=== PATIENT | female | born 1950 | race Asian ===

== ENCOUNTER 2017-06-26 05:41 | Inpatient (IN) | payer MEDICAID ==
[2017-06-26] VITALS (42 sets, daily range): BP systolic 64–163; BP diastolic 27–90
[~2017-06-26] VITALS: Ht 154.9 cm; Wt 39.9 kg
[2017-06-26] MEDS ORDERED: SODIUM CHLORIDE 0.9% 250 ML IV ONE (06:45)
[2017-06-26 07:13] LABS: HEMATOCRIT. 37.3 % (36.0-48.0); HEMOGLOBIN. 12.7 g/dL (12.0-16.0); MEAN CORPUSCULAR HEMOGLOBIN 34.4 pg (28.0-32.0); MEAN CORPUSCULAR VOLUME 101.4 fL (81.0-99.0); MEAN PLATELET VOLUME 7.4 fl (7.4-10.4); PLATELET 234 x1000/uL (130-400); RED BLOOD CELL COUNT 3.68 mill/uL (4.2-5.4); RED CELL DISTRIBUTION WIDTH 17.5 % (11.6-14.6)
[2017-06-26 07:27] LABS: CARBON DIOXIDE 30 mEq/L (21-32); CHLORIDE 84 mEq/L (98-107)
[2017-06-26] MEDS ORDERED: CALCIUM CHLORIDE 1,000 MG in DEXT 5% WATER 90 ML IV ONE (07:45)
[2017-06-26] MEDS ORDERED: SODIUM POLYSTYRENE SULFONATE 15 G/60 ML BOT PO ONE (07:45)
[2017-06-26] MEDS ORDERED: DEXTROSE 50% WATER 50ML SYRINGE IV ONE ×3 (07:45→11:00)
[2017-06-26] MEDS ORDERED: INSULIN REGULAR (HUMULIN R) 300UNITS/3ML SUBCUT ONE (07:45)
[2017-06-26] MEDS ORDERED: ALBUTEROL (0.5%) 2.5MG/0.5ML NEB HHN ONE (08:30)
[2017-06-26] MEDS ORDERED: ALBUTEROL (0.083%) 2.5MG/3ML NEB ONE (08:53)
[2017-06-26 09:30] LABS: PLATELET ESTIMATE NORMAL
[2017-06-26] MEDS ORDERED: INSULIN REGULAR (HUMULIN R) 300UNITS/3ML IV ONE (11:00)
[2017-06-26] MEDS ORDERED: SODIUM CHLORIDE 0.9% 500 ML IV ONE (11:00)
[2017-06-26] MEDS ORDERED: ONDANSETRON HCL 4MG/2ML VIAL IV PRN (12:45)
[2017-06-26] MEDS ORDERED: DEXTROSE 50% WATER 50ML SYRINGE IV PRN (12:45)
[2017-06-26] MEDS ORDERED: IPRATROPIUM/ALBUTEROL 0.5-3(2.5)MG/3ML NEB INH PRN (12:45)
[2017-06-26] MEDS ORDERED: CLONIDINE 0.1MG TABLET PO PRN (12:45)
[2017-06-26] MEDS ORDERED: ACETAMINOPHEN 325MG TABLET PO PRN (12:45)
[2017-06-26] MEDS ORDERED: NOREPINEPHRINE 4 MG in DEXT 5% WATER 246 ML IV PRN ×2 (13:00→13:15)
[2017-06-26] MEDS: BLOOD SUGAR DIAGNOSTIC STRIP TEST SCH ×2 (16:30→20:44)
[2017-06-26] MEDS: INSULIN LISPRO 100 UNITS/ML SUBCUT SCH ×2 (17:00→21:00)
[2017-06-26] MEDS ORDERED: DILTIAZEM HCL 5MG/ML 5ML VIAL IV NR ×2 (17:56→18:00)
[2017-06-26] MEDS ORDERED: DILTIAZEM HCL 125 MG in DEXT 5% WATER 100 ML IV PRN (18:00)
[2017-06-26] MEDS ORDERED: PHENYLEPHRINE 40 MG in DEXT 5% WATER 246 ML IV PRN (18:15)
[2017-06-26] MEDS: ESMOLOL 2500MG PREMIX 250 ML IV SCH (19:49)
[2017-06-26] MEDS: DIPHENHYDRAMINE 50MG/ML VIAL IV PRN (20:00)
[2017-06-26] MEDS: HYDROCODONE/ACETAMINOPHEN 5/325MG TABLET PO PRN (20:01)
[2017-06-26] MEDS ORDERED: NOREPINEPHRINE 4 MG in SODIUM CHLORIDE 0.9% 246 ML IV PRN (20:29)
[2017-06-26] MEDS: PHENYLEPHRINE 40 MG in SODIUM CHLORIDE 0.9% 246 ML IV PRN (21:33)
[2017-06-26] MEDS ORDERED: HYDROCORTISONE SOD SUCCINATE 100 MG/2 ML VIAL IV SCH (22:00)
[2017-06-26] MEDS ORDERED: INSULIN DETEMIR UD 100 UNITS/ML SYR SUBCUT SCH (22:00)
[2017-06-26] MEDS: MORPHINE SULFATE 2 MG/ML CPJ (NOT FOR IM USE) IV PRN (22:23)
[2017-06-26] MEDS: PIPERACILLIN/TAZ 2.25G PREMIX 50 ML IV SCH (22:25)
[2017-06-26] MEDS: POLYVINYL ALCOHOL OPHTH DROPS 15ML BOTHEYE PRN (22:27)
[2017-06-27] VITALS (77 sets, daily range): BP systolic 50–157; BP diastolic 30–100
[2017-06-27 00:18] LABS: TROPONIN I 0.11 ng/mL (0.00-0.04)
[2017-06-27] MEDS: DIPHENHYDRAMINE 50MG/ML VIAL IV PRN ×2 (02:24→22:44)
[2017-06-27 05:38] LABS: HEMATOCRIT. 31.3 % (36.0-48.0); HEMOGLOBIN. 10.5 g/dL (12.0-16.0); MEAN CORPUSCULAR HEMOGLOBIN 34.6 pg (28.0-32.0); MEAN CORPUSCULAR VOLUME 103.5 fL (81.0-99.0); RED BLOOD CELL COUNT 3.02 mill/uL (4.2-5.4); RED CELL DISTRIBUTION WIDTH 17.5 % (11.6-14.6)
[2017-06-27 05:39] LABS: MEAN PLATELET VOLUME 7.4 fl (7.4-10.4); PLATELET 179 x1000/uL (130-400)
[2017-06-27] MEDS: ESMOLOL 2500MG PREMIX 250 ML IV SCH (05:51)
[2017-06-27] MEDS: PIPERACILLIN/TAZ 2.25G PREMIX 50 ML IV SCH ×3 (05:53→21:33)
[2017-06-27] MEDS: PHENYLEPHRINE 40 MG in SODIUM CHLORIDE 0.9% 246 ML IV PRN (06:05)
[2017-06-27 06:22] LABS: CARBON DIOXIDE 26 mEq/L (21-32); CHLORIDE 103 mEq/L (98-107); HDL CHOLESTEROL 56 mg/dL (40-59); LDL CHOLESTEROL 36 mg/dL (5-100); TROPONIN I 0.17 ng/mL (0.00-0.04)
[2017-06-27] MEDS: BLOOD SUGAR DIAGNOSTIC STRIP TEST SCH ×4 (06:30→20:06)
[2017-06-27] MEDS: INSULIN LISPRO 100 UNITS/ML SUBCUT SCH ×4 (07:00→20:06)
[2017-06-27 07:55] LABS: PHOSPHORUS 8.1 mg/dL (2.5-4.9)
[2017-06-27] MEDS: PANTOPRAZOLE SODIUM 40 MG/VIAL IV SCH (10:10)
[2017-06-27 11:36] LABS: PLATELET ESTIMATE NORMAL
[2017-06-27] MEDS: MUPIROCIN 2% CREAM 15GM TOP SCH ×2 (16:00→21:33)
[2017-06-27] MEDS: GUAIFENESIN/CODEINE 100-10MG/5ML UDC PO PRN (20:13)
[2017-06-28] VITALS (33 sets, daily range): BP systolic 84–149; BP diastolic 39–95
[2017-06-28] MEDS: MORPHINE SULFATE 2 MG/ML CPJ (NOT FOR IM USE) IV PRN ×2 (03:23→08:24)
[2017-06-28] MEDS: PIPERACILLIN/TAZ 2.25G PREMIX 50 ML IV SCH ×3 (05:28→22:21)
[2017-06-28] MEDS: MUPIROCIN 2% CREAM 15GM TOP SCH ×3 (05:28→22:21)
[2017-06-28 05:41] LABS: BASOPHILS % 0.5 % (0.0-2.0); EOSINOPHILS % 1.4 % (0.0-5.0); HEMATOCRIT. 28.7 % (36.0-48.0); HEMOGLOBIN. 9.6 g/dL (12.0-16.0); MEAN CORPUSCULAR HEMOGLOBIN 34.4 pg (28.0-32.0); MEAN CORPUSCULAR VOLUME 103.2 fL (81.0-99.0); MEAN PLATELET VOLUME 7.7 fl (7.4-10.4); MONOCYTES % 10.4 % (2.0-8.0); NEUTROPHILS % 75.7 % (40.0-76.0); PLATELET 126 x1000/uL (130-400); RED BLOOD CELL COUNT 2.78 mill/uL (4.2-5.4)
[2017-06-28] MEDS: BLOOD SUGAR DIAGNOSTIC STRIP TEST SCH ×6 (05:49→20:47)
[2017-06-28] MEDS: INSULIN LISPRO 100 UNITS/ML SUBCUT SCH ×4 (05:49→20:47)
[2017-06-28] MEDS: PANTOPRAZOLE SODIUM 40 MG/VIAL IV SCH (08:23)
[2017-06-28 11:20] LABS: TROPONIN I 0.1 ng/mL (0.00-0.04)
[2017-06-28 11:23] LABS: PHOSPHORUS 8.1 mg/dL (2.5-4.9)
[2017-06-28] MEDS ORDERED: MAGNESIUM 2 G PREMIX 50 ML IV NR (13:30)
[2017-06-28] MEDS: DIPHENHYDRAMINE 50MG/ML VIAL IV PRN ×2 (14:11→22:21)
[2017-06-28] MEDS: CALCIUM ACETATE 667MG CAPSULE PO SCH (17:29)
[2017-06-29] VITALS (12 sets, daily range): BP systolic 95–147; BP diastolic 45–70
[2017-06-29] MEDS: HYDROCODONE/ACETAMINOPHEN 5/325MG TABLET PO PRN (01:17)
[2017-06-29] MEDS: MUPIROCIN 2% CREAM 15GM TOP SCH ×3 (06:00→21:37)
[2017-06-29] MEDS: PIPERACILLIN/TAZ 2.25G PREMIX 50 ML IV SCH ×2 (06:00→21:37)
[2017-06-29 07:13] LABS: BASOPHILS % 0.5 % (0.0-2.0); EOSINOPHILS % 2.9 % (0.0-5.0); HEMOGLOBIN. 10.4 g/dL (12.0-16.0); LYMPHOCYTES % 14.9 % (20.0-50.0); MEAN CORPUSCULAR HEMOGLOBIN 34.4 pg (28.0-32.0); MEAN CORPUSCULAR VOLUME 103.1 fL (81.0-99.0); MEAN PLATELET VOLUME 7.6 fl (7.4-10.4); MONOCYTES % 10.4 % (2.0-8.0); NEUTROPHILS % 71.3 % (40.0-76.0); PLATELET 145 x1000/uL (130-400); RED BLOOD CELL COUNT 3.01 mill/uL (4.2-5.4); RED CELL DISTRIBUTION WIDTH 17.1 % (11.6-14.6)
[2017-06-29 08:08] LABS: PHOSPHORUS 7.9 mg/dL (2.5-4.9)
[2017-06-29] MEDS: INSULIN LISPRO 100 UNITS/ML SUBCUT SCH ×4 (08:10→20:44)
[2017-06-29] MEDS: CALCIUM ACETATE 667MG CAPSULE PO SCH ×3 (08:28→18:00)
[2017-06-29] MEDS: PANTOPRAZOLE SODIUM 40 MG/VIAL IV SCH (08:28)
[2017-06-29] MEDS: BLOOD SUGAR DIAGNOSTIC STRIP TEST SCH ×4 (08:29→20:43)
[2017-06-29] MEDS ORDERED: AMIODARONE HCL 150 MG in DEXT 5% WATER 100 ML IV NR (15:45)
[2017-06-29] MEDS ORDERED: AMIODARONE HCL 900 MG in DEXT 5% WATER 482 ML IV SCH (16:15)
[2017-06-30] VITALS (12 sets, daily range): BP systolic 100–120; BP diastolic 49–70
[2017-06-30] MEDS: PIPERACILLIN/TAZ 2.25G PREMIX 50 ML IV SCH ×3 (05:57→21:56)
[2017-06-30] MEDS: MUPIROCIN 2% CREAM 15GM TOP SCH ×3 (05:57→21:57)
[2017-06-30] MEDS: BLOOD SUGAR DIAGNOSTIC STRIP TEST SCH ×4 (07:06→21:46)
[2017-06-30] MEDS: INSULIN LISPRO 100 UNITS/ML SUBCUT SCH ×4 (07:59→21:00)
[2017-06-30] MEDS: CALCIUM ACETATE 667MG CAPSULE PO SCH ×3 (08:09→18:19)
[2017-06-30] MEDS: PANTOPRAZOLE SODIUM 40 MG/VIAL IV SCH (08:09)
[2017-06-30 09:31] LABS: HEMOGLOBIN 8.4 g/dL (12.0-16.0); MEAN CORPUSCULAR HEMOGLOBIN 34.8 pg (28.0-32.0); MEAN CORPUSCULAR VOLUME 103.2 fL (81.0-99.0); PLATELET 120 x1000/uL (130-400); RED BLOOD CELL COUNT 2.42 mill/uL (4.2-5.4); RED CELL DISTRIBUTION WIDTH 16.8 % (11.6-14.6)
[2017-06-30] MEDS: AMIODARONE HCL 200 MG TABLET PO SCH ×2 (12:26→21:00)
[2017-07-01] VITALS (10 sets, daily range): BP systolic 90–137; BP diastolic 49–99
[2017-07-01] MEDS: PIPERACILLIN/TAZ 2.25G PREMIX 50 ML IV SCH ×3 (05:34→22:22)
[2017-07-01] MEDS: MUPIROCIN 2% CREAM 15GM TOP SCH ×3 (05:34→21:54)
[2017-07-01] MEDS: BLOOD SUGAR DIAGNOSTIC STRIP TEST SCH ×5 (07:39→21:00)
[2017-07-01] MEDS: INSULIN LISPRO 100 UNITS/ML SUBCUT SCH ×4 (08:00→21:00)
[2017-07-01] MEDS: CALCIUM ACETATE 667MG CAPSULE PO SCH ×3 (08:00→18:07)
[2017-07-01] MEDS: AMIODARONE HCL 200 MG TABLET PO SCH ×2 (08:23→21:00)
[2017-07-01] MEDS: PANTOPRAZOLE SODIUM 40 MG/VIAL IV SCH (08:23)
[2017-07-01 09:01] LABS: BASOPHILS % 0.7 % (0.0-2.0); EOSINOPHILS % 1.6 % (0.0-5.0); HEMOGLOBIN. 8.9 g/dL (12.0-16.0); LYMPHOCYTES % 10.2 % (20.0-50.0); MEAN CORPUSCULAR HEMOGLOBIN 33.6 pg (28.0-32.0); MEAN PLATELET VOLUME 8.2 fl (7.4-10.4); NEUTROPHILS % 74.5 % (40.0-76.0); PLATELET 148 x1000/uL (130-400); RED BLOOD CELL COUNT 2.65 mill/uL (4.2-5.4); RED CELL DISTRIBUTION WIDTH 16.7 % (11.6-14.6)
[2017-07-01] MEDS: POLYVINYL ALCOHOL OPHTH DROPS 15ML BOTHEYE PRN ×2 (12:06→22:22)
[2017-07-01] MEDS: IPRATROPIUM BROMIDE (0.02%) 0.5MG/2.5ML NEB HHN SCH ×3 (12:14→21:16)
[2017-07-01] MEDS: GUAIFENESIN/CODEINE 100-10MG/5ML UDC PO PRN ×2 (12:28→22:22)
[2017-07-01] MEDS: SILVER SULFADIAZINE 1% CREAM 50GM TOP SCH (18:07)
[2017-07-01] MEDS ORDERED: EPOETIN ALFA 10000UNITS/ML VIAL SUBCUT SCH (21:00)
[2017-07-02] MEDS: DIPHENHYDRAMINE 50MG/ML VIAL IV PRN (01:11)
[2017-07-02] MEDS: GUAIFENESIN/CODEINE 100-10MG/5ML UDC PO PRN ×2 (01:14→10:25)
[2017-07-02 04:12] VITALS: BP 91/58
[2017-07-02 04:43] VITALS: BP 34/19
[2017-07-02] MEDS: PIPERACILLIN/TAZ 2.25G PREMIX 50 ML IV SCH ×2 (05:30→13:34)
[2017-07-02] MEDS: MUPIROCIN 2% CREAM 15GM TOP SCH ×2 (05:30→13:35)
[2017-07-02 06:40] LABS: HEMATOCRIT. 23.3 % (36.0-48.0); HEMOGLOBIN. 7.8 g/dL (12.0-16.0); MEAN CORPUSCULAR HEMOGLOBIN 33.9 pg (28.0-32.0); MEAN CORPUSCULAR VOLUME 101.4 fL (81.0-99.0); MEAN PLATELET VOLUME 7.9 fl (7.4-10.4); PLATELET 133 x1000/uL (130-400); RED BLOOD CELL COUNT 2.29 mill/uL (4.2-5.4); RED CELL DISTRIBUTION WIDTH 16.5 % (11.6-14.6)
[2017-07-02] MEDS: BLOOD SUGAR DIAGNOSTIC STRIP TEST SCH ×3 (07:30→17:30)
[2017-07-02] MEDS: INSULIN LISPRO 100 UNITS/ML SUBCUT SCH ×3 (08:00→17:52)
[2017-07-02] MEDS: IPRATROPIUM BROMIDE (0.02%) 0.5MG/2.5ML NEB HHN SCH ×4 (08:17→20:06)
[2017-07-02 10:20] LABS: TOTAL IRON BINDING CAPACITY 109 ug/dL (250-450)
[2017-07-02] MEDS: CALCIUM ACETATE 667MG CAPSULE PO SCH ×2 (10:25→13:32)
[2017-07-02] MEDS: AMIODARONE HCL 200 MG TABLET PO SCH (10:26)
[2017-07-02] MEDS: PANTOPRAZOLE SODIUM 40 MG/VIAL IV SCH (10:26)
[2017-07-02] MEDS: POLYVINYL ALCOHOL OPHTH DROPS 15ML BOTHEYE PRN (10:48)
[2017-07-02] MEDS ORDERED: IRON SUCROSE COMPLEX 100 MG/5 ML ML IV SCH (11:00)
[2017-07-02] MEDS ORDERED: MAGNESIUM 2 G PREMIX 50 ML IV NR (12:00)
[2017-07-02] MEDS: SILVER SULFADIAZINE 1% CREAM 50GM TOP SCH (12:06)
[2017-07-02] MEDS ORDERED: ASPI-1159 PO (13:02)
[2017-07-02] MEDS ORDERED: CALC667C PO (13:02)
[2017-07-02 18:37] LABS: PLATELET ESTIMATE NORMAL
[2017-07-02 19:31] VITALS: BP 130/90
== END 2017-07-02 20:40 | disposition home or self-care (01) | DRG 720 ==
LOC: ER 05:57 → ENRESERV 10:04 → CANRESERV 10:04 → EDBEDREQSVC 11:54 → EDBEDREQ 13:03 → ENRESERV 13:04 → MICUSO 13:47 → 7WST 06-28 16:47 → 5EST 06-29 17:33
PROVIDERS: ADMIT Internal Medicine; ATTEND Internal Medicine
PROC: 02HV33Z Insertion of Infusion Device into Superior Vena Cava, Percutaneous Approach (ICD-10-PCS; 2017-06-26)
PROC: B548ZZA Ultrasonography of Superior Vena Cava, Guidance (ICD-10-PCS; 2017-06-26)
PROC: 5A1D70Z Performance of Urinary Filtration, Intermittent, Less than 6 Hours Per Day (ICD-10-PCS; principal; 2017-06-27)
DX: A41.9 Sepsis, unspecified organism (principal); R57.9 Shock, unspecified; I21.4 Non-ST elevation (NSTEMI) myocardial infarction; E44.0 Moderate protein-calorie malnutrition; N18.6 End stage renal disease; E11.52 Type 2 diabetes mellitus with diabetic peripheral angiopathy with gangrene; I95.9 Hypotension, unspecified; I48.91 Unspecified atrial fibrillation; E11.22 Type 2 diabetes mellitus with diabetic chronic kidney disease; E11.65 Type 2 diabetes mellitus with hyperglycemia; I13.11 Hypertensive heart and chronic kidney disease without heart failure, with stage 5 chronic kidney disease, or end stage renal disease; E87.1 Hypo-osmolality and hyponatremia; E87.5 Hyperkalemia; Z99.2 Dependence on renal dialysis; J06.9 Acute upper respiratory infection, unspecified; D63.1 Anemia in chronic kidney disease; I44.0 Atrioventricular block, first degree; Z79.4 Long term (current) use of insulin; Z85.038 Personal history of other malignant neoplasm of large intestine; Z91.15 Patient's noncompliance with renal dialysis; Z91.19 Patient's noncompliance with other medical treatment and regimen; Z93.3 Colostomy status; Z68.1 Body mass index [BMI] 19.9 or less, adult; T65.91XA Toxic effect of unspecified substance, accidental (unintentional), initial encounter; T22.40XA Corrosion of unspecified degree of shoulder and upper limb, except wrist and hand, unspecified site, initial encounter; Y93.89 Activity, other specified; Y92.89 Other specified places as the place of occurrence of the external cause; Y99.8 Other external cause status
CPT/HCPCS: 36415; 36569; 71010; 76937; 80048; 80053; 80061; 82533; 82962; 83036; 83540; 83550; 83605; 83735; 84100; 84443; 84484; 85025; 85027; 87040; 93005; 93306; 93970; 93971; 94640; 94664; 96372; 96374; 96375; 96376; 97163; 97166; 99291; C1725; C1893; C9113; J0282; J0885; J1200; J1720; J1815; J2270; J2370; J2543; J3475; J3490; J7030; J7050; J7060; J7611; J7620

== ENCOUNTER 2018-10-01 13:40 | Inpatient (IN) | payer MEDICAID ==
[~2018-10-01] VITALS: Ht 152.4 cm; Wt 26.3 kg
[~2018-10-01 13:40] MED LIST: ASPI-1159 PO; CALC667C PO
[2018-10-01] MEDS ORDERED: SODIUM CHLORIDE 0.9% 500 ML IV ONE (14:08)
[2018-10-01] MEDS ORDERED: LIDOCAINE HCL 1% 20ML VIAL (Pyxis) INJ ONE (14:49)
[2018-10-01] MEDS ORDERED: SODIUM BICARBONATE 4% (2.4MEQ) 5ML VIAL IV ONE (14:49)
[2018-10-01 18:10] LABS: BASOPHILS % 0.7 % (0.0-2.0); EOSINOPHILS % 1.8 % (0.0-5.0); HEMATOCRIT. 24.9 % (36.0-48.0); HEMOGLOBIN. 8.1 g/dL (12.0-16.0); LYMPHOCYTES % 18.8 % (20.0-50.0); MEAN CORPUSCULAR HEMOGLOBIN 34.2 pg (28.0-32.0); MEAN CORPUSCULAR VOLUME 104.6 fL (81.0-99.0); MEAN PLATELET VOLUME 9.3 fl (7.4-10.4); MONOCYTES % 9.3 % (2.0-8.0); NEUTROPHILS % 69.4 % (40.0-76.0); PLATELET 130 x1000/uL (130-400); RED BLOOD CELL COUNT 2.38 mill/uL (4.2-5.4); RED CELL DISTRIBUTION WIDTH 14.9 % (11.6-14.6)
[2018-10-01 18:15] LABS: CHLORIDE 90 mEq/L (98-107)
[2018-10-01 18:22] LABS: INR 3.9; PARTIAL THROMBOPLASTIN TIME 49.6 sec (23.4-31.0); PROTHROMBIN TIME 38.6 sec (9.1-11.1)
[2018-10-01 20:00] VITALS: BP 107/70
[2018-10-01] MEDS ORDERED: ONDANSETRON HCL 4MG/2ML INJ IV PRN (20:00)
[2018-10-02] VITALS: BP 112/72
[2018-10-02 04:00] VITALS: BP 121/46
[2018-10-02 09:00] VITALS: BP 94/59
[2018-10-02] MEDS: SEVELAMER CARBONATE 800 MG TABLET PO SCH ×3 (10:18→18:22)
[2018-10-02 11:07] LABS: BASOPHILS % 0.8 % (0.0-2.0); EOSINOPHILS % 2.1 % (0.0-5.0); HEMATOCRIT. 23.7 % (36.0-48.0); HEMOGLOBIN. 7.7 g/dL (12.0-16.0); MEAN PLATELET VOLUME 9.2 fl (7.4-10.4); MONOCYTES % 10.9 % (2.0-8.0); NEUTROPHILS % 69.2 % (40.0-76.0); PLATELET 123 x1000/uL (130-400); RED BLOOD CELL COUNT 2.25 mill/uL (4.2-5.4); RED CELL DISTRIBUTION WIDTH 15.1 % (11.6-14.6)
[2018-10-02 12:00] VITALS: BP 99/54
[2018-10-02 16:00] VITALS: BP 108/65
[2018-10-02 20:00] VITALS: BP 102/41
[2018-10-02] MEDS: EPOETIN ALFA 10000UNITS/ML VIAL SUBCUT SCH (21:13)
[2018-10-02] MEDS: DIPHENHYDRAMINE 50MG/ML VIAL IV PRN (23:32)
[2018-10-03] VITALS (11 sets, daily range): BP systolic 93–122; BP diastolic 45–68
[2018-10-03] MEDS: LORAZEPAM 2MG/ML CPJ IV PRN ×2 (05:02→11:39)
[2018-10-03 07:10] LABS: BASOPHILS % 0.8 % (0.0-2.0); EOSINOPHILS % 1.6 % (0.0-5.0); HEMATOCRIT. 22.6 % (36.0-48.0); HEMOGLOBIN. 7.3 g/dL (12.0-16.0); LYMPHOCYTES % 21.2 % (20.0-50.0); MEAN CORPUSCULAR VOLUME 104.7 fL (81.0-99.0); MEAN PLATELET VOLUME 9.2 fl (7.4-10.4); MONOCYTES % 10.7 % (2.0-8.0); NEUTROPHILS % 65.7 % (40.0-76.0); PLATELET 123 x1000/uL (130-400); RED BLOOD CELL COUNT 2.16 mill/uL (4.2-5.4); RED CELL DISTRIBUTION WIDTH 15.2 % (11.6-14.6)
[2018-10-03] MEDS: SEVELAMER CARBONATE 800 MG TABLET PO SCH ×3 (08:15→18:10)
[2018-10-03] MEDS: GABAPENTIN 100MG CAPSULE PO SCH ×3 (14:00→20:48)
[2018-10-04] VITALS: BP 106/68
[2018-10-04 04:00] VITALS: BP 125/71
[2018-10-04] MEDS: GABAPENTIN 100MG CAPSULE PO SCH ×3 (06:00→22:08)
[2018-10-04 08:00] VITALS: BP 131/71
[2018-10-04] MEDS: SEVELAMER CARBONATE 800 MG TABLET PO SCH ×3 (08:45→18:10)
[2018-10-04 09:10] LABS: HEMATOCRIT. 31.8 % (36.0-48.0); HEMOGLOBIN. 10.6 g/dL (12.0-16.0); MEAN CORPUSCULAR HEMOGLOBIN 33.9 pg (28.0-32.0); RED BLOOD CELL COUNT 3.12 mill/uL (4.2-5.4); RED CELL DISTRIBUTION WIDTH 17.5 % (11.6-14.6)
[2018-10-04 12:14] VITALS: BP 115/85
[2018-10-04 16:00] VITALS: BP 118/68
[2018-10-04] MEDS: CIPROFLOXACIN 0.3% OPHTH SOLN 2.5ML BOTHEYE SCH ×2 (16:33→22:08)
[2018-10-04 20:00] VITALS: BP 148/130
[2018-10-04] MEDS ORDERED: DILTIAZEM HCL 5MG/ML 5ML VIAL IV NR (21:15)
[2018-10-04 21:19] LABS: FOLIC ACID (FOLATE) SERUM > 20.00 ng/mL (>5.38)
[2018-10-04 21:25] LABS: VITAMIN B12 SERUM 231 pg/mL (211-911)
[2018-10-05] VITALS: BP 90/50
[2018-10-05 04:00] VITALS: BP 165/79
[2018-10-05] MEDS: GABAPENTIN 100MG CAPSULE PO SCH ×3 (06:11→22:28)
[2018-10-05 08:00] VITALS: BP 87/44
[2018-10-05 08:00] LABS: BASOPHILS % 0.7 % (0.0-2.0); EOSINOPHILS % 2.1 % (0.0-5.0); HEMATOCRIT. 27.9 % (36.0-48.0); HEMOGLOBIN. 9.3 g/dL (12.0-16.0); LYMPHOCYTES % 14.7 % (20.0-50.0); MEAN CORPUSCULAR HEMOGLOBIN 33.8 pg (28.0-32.0); MEAN CORPUSCULAR VOLUME 101.9 fL (81.0-99.0); MEAN PLATELET VOLUME 8.9 fl (7.4-10.4); MONOCYTES % 9.2 % (2.0-8.0); NEUTROPHILS % 73.3 % (40.0-76.0); PLATELET 99 x1000/uL (130-400); RED BLOOD CELL COUNT 2.74 mill/uL (4.2-5.4); RED CELL DISTRIBUTION WIDTH 17.1 % (11.6-14.6)
[2018-10-05] MEDS: CIPROFLOXACIN 0.3% OPHTH SOLN 2.5ML BOTHEYE SCH ×4 (09:03→22:27)
[2018-10-05] MEDS: SEVELAMER CARBONATE 800 MG TABLET PO SCH ×3 (09:03→18:10)
[2018-10-05 12:00] VITALS: BP 130/64
[2018-10-05] MEDS: ACETAMINOPHEN 325MG TABLET PO PRN (13:23)
[2018-10-05] MEDS: GUAIFENESIN-DM 200MG-20MG/10ML UDC PO PRN (13:25)
[2018-10-05] MEDS: DILTIAZEM HCL 30MG TABLET PO SCH ×2 (14:00→22:28)
[2018-10-05] MEDS: ASPIRIN 81MG EC TABLET PO SCH (15:33)
[2018-10-05 16:00] VITALS: BP 119/93
[2018-10-05 20:00] VITALS: BP 125/64
[2018-10-05] MEDS: EPOETIN ALFA 10000UNITS/ML VIAL SUBCUT SCH (22:27)
[2018-10-06] VITALS (11 sets, daily range): BP systolic 59–106; BP diastolic 27–45
[2018-10-06] MEDS ORDERED: DILTIAZEM HCL 90MG TABLET PO SCH (02:00)
[2018-10-06] MEDS: GABAPENTIN 100MG CAPSULE PO SCH ×3 (06:00→21:47)
[2018-10-06] MEDS: ACETAMINOPHEN 325MG TABLET PO PRN (06:09)
[2018-10-06 07:24] LABS: BASOPHILS % 0.2 % (0.0-2.0); EOSINOPHILS % 0.1 % (0.0-5.0); HEMATOCRIT. 27.4 % (36.0-48.0); HEMOGLOBIN. 9.1 g/dL (12.0-16.0); LYMPHOCYTES % 11.1 % (20.0-50.0); MEAN CORPUSCULAR HEMOGLOBIN 33.5 pg (28.0-32.0); MEAN CORPUSCULAR VOLUME 101.2 fL (81.0-99.0); MEAN PLATELET VOLUME 9.4 fl (7.4-10.4); MONOCYTES % 9.2 % (2.0-8.0); NEUTROPHILS % 79.4 % (40.0-76.0); PLATELET 77 x1000/uL (130-400); RED BLOOD CELL COUNT 2.71 mill/uL (4.2-5.4); RED CELL DISTRIBUTION WIDTH 16.6 % (11.6-14.6)
[2018-10-06] MEDS: SEVELAMER CARBONATE 800 MG TABLET PO SCH ×3 (08:10→18:16)
[2018-10-06] MEDS: CIPROFLOXACIN 0.3% OPHTH SOLN 2.5ML BOTHEYE SCH ×4 (10:46→21:48)
[2018-10-06] MEDS: ASPIRIN 81MG EC TABLET PO SCH (10:46)
[2018-10-06] MEDS: SODIUM CHLORIDE 0.9% 1,000 ML IV SCH ×2 (11:00→22:00)
[2018-10-06] MEDS ORDERED: SODIUM CHLORIDE 0.9% 250 ML IV ONE (11:00)
[2018-10-06] MEDS ORDERED: MAGNESIUM 1 G PREMIX 100 ML IV NR (15:00)
[2018-10-06] MEDS ORDERED: SODIUM POLYSTYRENE SULFONATE 15 G/60 ML BOT PO NR (16:00)
[2018-10-06 17:49] LABS: INR 2.8; PROTHROMBIN TIME 28.1 sec (9.1-11.1)
[2018-10-07] VITALS (51 sets, daily range): BP systolic 70–137; BP diastolic 26–74
[2018-10-07] MEDS: SODIUM CHLORIDE 0.9% 1,000 ML IV SCH (08:36)
[2018-10-07] MEDS: SEVELAMER CARBONATE 800 MG TABLET PO SCH ×3 (08:37→17:06)
[2018-10-07] MEDS: CIPROFLOXACIN 0.3% OPHTH SOLN 2.5ML BOTHEYE SCH ×3 (08:37→17:06)
[2018-10-07] MEDS: ASPIRIN 81MG EC TABLET PO SCH (08:37)
[2018-10-07] MEDS: GUAIFENESIN-DM 200MG-20MG/10ML UDC PO PRN (08:37)
[2018-10-07] MEDS ORDERED: ALBUMIN HUMAN 25GM/100ML (25%) IV NR (11:30)
[2018-10-07 11:56] LABS: BASOPHILS % 0.8 % (0.0-2.0); EOSINOPHILS % 0.6 % (0.0-5.0); HEMATOCRIT. 26.7 % (36.0-48.0); HEMOGLOBIN. 8.6 g/dL (12.0-16.0); LYMPHOCYTES % 17.2 % (20.0-50.0); MEAN CORPUSCULAR VOLUME 102.7 fL (81.0-99.0); MEAN PLATELET VOLUME 9.7 fl (7.4-10.4); MONOCYTES % 9.7 % (2.0-8.0); NEUTROPHILS % 71.7 % (40.0-76.0); PLATELET 76 x1000/uL (130-400); RED CELL DISTRIBUTION WIDTH 16.1 % (11.6-14.6)
[2018-10-07] MEDS ORDERED: AMIODARONE HCL 900 MG in DEXT 5% WATER 500 ML IV SCH (12:00)
[2018-10-07] MEDS: ACETAMINOPHEN 325MG TABLET PO PRN (12:08)
[2018-10-07] MEDS: MIDODRINE HCL 5MG TABLET PO SCH ×2 (13:37→17:06)
[2018-10-07] MEDS: GABAPENTIN 100MG CAPSULE PO SCH ×2 (14:00→21:50)
[2018-10-07] MEDS ORDERED: SODIUM CHLORIDE 0.9% 200 ML IV NR (14:00)
[2018-10-07] MEDS: PHENYLEPHRINE 20 MG in DEXT 5% WATER 248 ML IV PRN (15:21)
[2018-10-07] MEDS: EPOETIN ALFA 10000UNITS/ML VIAL SUBCUT SCH (21:50)
[2018-10-08] VITALS (73 sets, daily range): BP systolic 40–151; BP diastolic 17–94
[2018-10-08] MEDS: CIPROFLOXACIN 0.3% OPHTH SOLN 2.5ML BOTHEYE SCH ×5 (06:43→21:16)
[2018-10-08] MEDS: GABAPENTIN 100MG CAPSULE PO SCH ×2 (06:43→14:04)
[2018-10-08] MEDS: SEVELAMER CARBONATE 800 MG TABLET PO SCH ×3 (06:43→16:48)
[2018-10-08 07:26] LABS: BASOPHILS % 0.5 % (0.0-2.0); EOSINOPHILS % 1.6 % (0.0-5.0); HEMATOCRIT. 30.1 % (36.0-48.0); HEMOGLOBIN. 9.8 g/dL (12.0-16.0); LYMPHOCYTES % 14.7 % (20.0-50.0); MEAN CORPUSCULAR HEMOGLOBIN 33.3 pg (28.0-32.0); MEAN CORPUSCULAR VOLUME 101.7 fL (81.0-99.0); MEAN PLATELET VOLUME 9.7 fl (7.4-10.4); MONOCYTES % 4.8 % (2.0-8.0); NEUTROPHILS % 78.4 % (40.0-76.0); PLATELET 95 x1000/uL (130-400); RED BLOOD CELL COUNT 2.96 mill/uL (4.2-5.4)
[2018-10-08 07:33] LABS: INR 2.7; PROTHROMBIN TIME 26.4 sec (9.1-11.1)
[2018-10-08] MEDS: ASPIRIN 81MG EC TABLET PO SCH (09:40)
[2018-10-08] MEDS: MIDODRINE HCL 5MG TABLET PO SCH ×3 (09:41→16:48)
[2018-10-08] MEDS: PHENYLEPHRINE 20 MG in DEXT 5% WATER 248 ML IV PRN ×2 (11:15→17:35)
[2018-10-08] MEDS: AMIODARONE HCL 200 MG TABLET PO SCH (21:17)
[2018-10-09] VITALS (68 sets, daily range): BP systolic 61–134; BP diastolic 21–100
[2018-10-09] MEDS: GABAPENTIN 100MG CAPSULE PO SCH ×4 (00:52→21:44)
[2018-10-09 05:33] LABS: BASOPHILS % 0.5 % (0.0-2.0); EOSINOPHILS % 0.8 % (0.0-5.0); HEMATOCRIT. 31.2 % (36.0-48.0); HEMOGLOBIN. 10.2 g/dL (12.0-16.0); LYMPHOCYTES % 15.1 % (20.0-50.0); MEAN CORPUSCULAR HEMOGLOBIN 33.4 pg (28.0-32.0); MEAN PLATELET VOLUME 9.8 fl (7.4-10.4); MONOCYTES % 6.7 % (2.0-8.0); NEUTROPHILS % 76.9 % (40.0-76.0); PLATELET 89 x1000/uL (130-400); RED BLOOD CELL COUNT 3.06 mill/uL (4.2-5.4); RED CELL DISTRIBUTION WIDTH 15.8 % (11.6-14.6)
[2018-10-09] MEDS: ASPIRIN 81MG EC TABLET PO SCH (08:15)
[2018-10-09] MEDS: AMIODARONE HCL 200 MG TABLET PO SCH ×2 (08:15→21:44)
[2018-10-09] MEDS: SEVELAMER CARBONATE 800 MG TABLET PO SCH ×3 (08:16→16:56)
[2018-10-09] MEDS: MIDODRINE HCL 5MG TABLET PO SCH ×3 (08:19→16:56)
[2018-10-09] MEDS: CIPROFLOXACIN 0.3% OPHTH SOLN 2.5ML BOTHEYE SCH ×2 (08:24→12:38)
[2018-10-09] MEDS: PHENYLEPHRINE 20 MG in DEXT 5% WATER 248 ML IV PRN ×3 (10:28→22:07)
[2018-10-10] VITALS (84 sets, daily range): BP systolic 43–154; BP diastolic 22–95
[2018-10-10] MEDS: ACETAMINOPHEN 325MG TABLET PO PRN ×2 (02:57→17:00)
[2018-10-10] MEDS: PHENYLEPHRINE 20 MG in DEXT 5% WATER 248 ML IV PRN ×2 (03:01→08:47)
[2018-10-10 05:28] LABS: BASOPHILS % 0.5 % (0.0-2.0); EOSINOPHILS % 0.7 % (0.0-5.0); LYMPHOCYTES % 15.1 % (20.0-50.0); MEAN CORPUSCULAR HEMOGLOBIN 33.3 pg (28.0-32.0); MEAN CORPUSCULAR VOLUME 99.9 fL (81.0-99.0); MEAN PLATELET VOLUME 9.7 fl (7.4-10.4); MONOCYTES % 8.2 % (2.0-8.0); NEUTROPHILS % 75.5 % (40.0-76.0); PLATELET 91 x1000/uL (130-400); RED BLOOD CELL COUNT 3.01 mill/uL (4.2-5.4); RED CELL DISTRIBUTION WIDTH 15.5 % (11.6-14.6)
[2018-10-10] MEDS: GABAPENTIN 100MG CAPSULE PO SCH ×3 (06:41→21:59)
[2018-10-10] MEDS: SEVELAMER CARBONATE 800 MG TABLET PO SCH ×3 (08:46→16:00)
[2018-10-10] MEDS: AMIODARONE HCL 200 MG TABLET PO SCH ×2 (08:46→21:59)
[2018-10-10] MEDS: MIDODRINE HCL 5MG TABLET PO SCH ×3 (08:46→16:04)
[2018-10-10] MEDS: ASPIRIN 81MG EC TABLET PO SCH (08:46)
[2018-10-10] MEDS: PHENYLEPHRINE 40 MG in DEXT 5% WATER 246 ML IV PRN ×2 (12:12→18:49)
[2018-10-10] MEDS: SODIUM CHLORIDE 0.9% 1,000 ML IV SCH (15:20)
[2018-10-10] MEDS: GUAIFENESIN-DM 200MG-20MG/10ML UDC PO PRN (17:28)
[2018-10-11] VITALS (98 sets, daily range): BP systolic 51–130; BP diastolic 16–91
[2018-10-11] MEDS: PHENYLEPHRINE 40 MG in DEXT 5% WATER 246 ML IV PRN ×2 (01:36→07:05)
[2018-10-11 05:43] LABS: BASOPHILS % 0.4 % (0.0-2.0); HEMATOCRIT. 33.7 % (36.0-48.0); HEMOGLOBIN. 10.9 g/dL (12.0-16.0); LYMPHOCYTES % 18.7 % (20.0-50.0); MEAN CORPUSCULAR HEMOGLOBIN 33.4 pg (28.0-32.0); MEAN CORPUSCULAR VOLUME 103.5 fL (81.0-99.0); MEAN PLATELET VOLUME 10.1 fl (7.4-10.4); MONOCYTES % 9.7 % (2.0-8.0); NEUTROPHILS % 70.2 % (40.0-76.0); PLATELET 87 x1000/uL (130-400); RED BLOOD CELL COUNT 3.25 mill/uL (4.2-5.4); RED CELL DISTRIBUTION WIDTH 16.2 % (11.6-14.6)
[2018-10-11] MEDS: GABAPENTIN 100MG CAPSULE PO SCH ×3 (06:00→21:25)
[2018-10-11] MEDS: SEVELAMER CARBONATE 800 MG TABLET PO SCH ×3 (06:41→17:00)
[2018-10-11] MEDS: AMIODARONE HCL 200 MG TABLET PO SCH ×2 (06:41→21:25)
[2018-10-11] MEDS: ACETAMINOPHEN 325MG TABLET PO PRN (08:18)
[2018-10-11] MEDS: ASPIRIN 81MG EC TABLET PO SCH (08:18)
[2018-10-11] MEDS: MIDODRINE HCL 5MG TABLET PO SCH ×3 (08:19→17:20)
[2018-10-11] MEDS: SODIUM CHLORIDE 0.9% 1,000 ML IV SCH (10:45)
[2018-10-12] VITALS (94 sets, daily range): BP systolic 67–148; BP diastolic 23–96
[2018-10-12 05:30] LABS: BASOPHILS % 0.5 % (0.0-2.0); EOSINOPHILS % 0.7 % (0.0-5.0); HEMATOCRIT. 26.5 % (36.0-48.0); HEMOGLOBIN. 8.9 g/dL (12.0-16.0); LYMPHOCYTES % 9.5 % (20.0-50.0); MEAN CORPUSCULAR HEMOGLOBIN 33.6 pg (28.0-32.0); MEAN CORPUSCULAR VOLUME 100.5 fL (81.0-99.0); MEAN PLATELET VOLUME 10.2 fl (7.4-10.4); MONOCYTES % 10.8 % (2.0-8.0); NEUTROPHILS % 78.5 % (40.0-76.0); PLATELET 58 x1000/uL (130-400); RED BLOOD CELL COUNT 2.64 mill/uL (4.2-5.4)
[2018-10-12] MEDS: GABAPENTIN 100MG CAPSULE PO SCH ×3 (06:10→21:08)
[2018-10-12] MEDS: SEVELAMER CARBONATE 800 MG TABLET PO SCH ×3 (06:10→18:30)
[2018-10-12] MEDS: SODIUM CHLORIDE 0.9% 1,000 ML IV SCH (06:11)
[2018-10-12] MEDS ORDERED: DEXTROSE 50% WATER 50ML SYRINGE IV ONE (07:32)
[2018-10-12] MEDS ORDERED: BLOOD SUGAR DIAGNOSTIC STRIP TEST NR ×4 (08:00→11:00)
[2018-10-12] MEDS ORDERED: BLOOD SUGAR DIAGNOSTIC STRIP TEST ONE (08:00)
[2018-10-12] MEDS ORDERED: ALBUMIN HUMAN 25GM/100ML (25%) IV NR (08:00)
[2018-10-12] MEDS ORDERED: DEXTROSE 50% WATER 50ML SYRINGE IV NR (08:15)
[2018-10-12] MEDS: MIDODRINE HCL 5MG TABLET PO SCH ×3 (08:26→18:22)
[2018-10-12] MEDS: ASPIRIN 81MG EC TABLET PO SCH (08:26)
[2018-10-12] MEDS: AMIODARONE HCL 200 MG TABLET PO SCH ×2 (08:26→21:08)
[2018-10-12] MEDS: DEXT 5%/0.9% NACL 1,000 ML IV SCH (08:28)
[2018-10-12] MEDS: BACLOFEN 10MG TABLET PO SCH ×2 (12:55→21:08)
[2018-10-12] MEDS: DIPHENHYDRAMINE 50MG/ML VIAL IV PRN ×2 (12:56→18:23)
[2018-10-12] MEDS ORDERED: IOHEXOL-300 100 ML BOTTLE ONE (15:43)
[2018-10-12] MEDS ORDERED: DILTIAZEM HCL 5MG/ML 5ML VIAL IV NR (16:45)
[2018-10-12] MEDS: INSULIN LISPRO 100 UNITS/ML SUBCUT SCH ×2 (17:00→21:00)
[2018-10-12] MEDS: DILTIAZEM HCL 125 MG in DEXT 5% WATER 100 ML IV PRN ×2 (17:22→22:01)
[2018-10-12] MEDS: BLOOD SUGAR DIAGNOSTIC STRIP TEST SCH ×2 (17:29→21:24)
[2018-10-12] MEDS: PHENYLEPHRINE 40 MG in DEXT 5% WATER 246 ML IV PRN ×2 (17:29→22:00)
[2018-10-12 19:24] LABS: HEMATOCRIT 27.5 % (36.0-48.0); HEMOGLOBIN 9.2 g/dL (12.0-16.0); MEAN CORPUSCULAR HEMOGLOBIN 33.5 pg (28.0-32.0); MEAN CORPUSCULAR VOLUME 100.5 fL (81.0-99.0); PLATELET 82 x1000/uL (130-400); RED BLOOD CELL COUNT 2.74 mill/uL (4.2-5.4); RED CELL DISTRIBUTION WIDTH 15.7 % (11.6-14.6)
[2018-10-12] MEDS ORDERED: MORPHINE SULFATE 4 MG/ML CPJ (NOT FOR IM USE) IV PRN (22:00)
[2018-10-12 22:06] LABS: BG BASE EXCESS -2.1 mmol/L (-2.0-2.0); BG CARBOXYHEMOGLOBIN 0.2 % (0.5-1.5); BG DEOXYHEMOGLOBIN 8.4 % (0.0-5.0); BG FRACTION INSPIRED OXYGEN 40; BG HCO3 ACT 21.5 mmol/L (22.0-26.0); BG METHEMOGLOBIN 0.2 % (0.0-1.5); BG OXYGEN SATURATION 91.6 % (92.0-98.5); BG OXYHEMOGLOBIN 91.2 % (94.0-97.0); BG PCO2 32.5 mmHg (35.0-45.0); BG PH 7.439 (7.350-7.450); BG PO2 62.6 mmHg (75.0-100.0); BG SAMPLE SITE LEFT BRACHIAL; BG TOTAL HEMOGLOBIN 9.2 g/dL (12.0-18.0); BG VENT MODE NASAL CANNULA
[2018-10-13] VITALS (105 sets, daily range): BP systolic 51–162; BP diastolic 17–110
[2018-10-13] MEDS: PIPERACILLIN/TAZ 2.25G PREMIX 50 ML IV SCH ×2 (00:51→13:21)
[2018-10-13] MEDS ORDERED: VANCOMYCIN 500 MG PREMIX 100 ML IV NR (01:00)
[2018-10-13] MEDS ORDERED: ALBUMIN HUMAN 25GM/100ML (25%) IV NR (01:45)
[2018-10-13 02:59] LABS: BG BASE EXCESS -0.7 mmol/L (-2.0-2.0); BG BILEVEL POS AIRWAY PRESSURE 15/5; BG CARBOXYHEMOGLOBIN 0.3 % (0.5-1.5); BG DEOXYHEMOGLOBIN 0.8 % (0.0-5.0); BG FRACTION INSPIRED OXYGEN 100; BG HCO3 ACT 22.6 mmol/L (22.0-26.0); BG METHEMOGLOBIN 0.3 % (0.0-1.5); BG OXYGEN SATURATION 99.2 % (92.0-98.5); BG OXYHEMOGLOBIN 98.6 % (94.0-97.0); BG PCO2 31.9 mmHg (35.0-45.0); BG PH 7.468 (7.350-7.450); BG PO2 168.5 mmHg (75.0-100.0); BG SAMPLE SITE RIGHT BRACHIAL; BG TOTAL HEMOGLOBIN 9.5 g/dL (12.0-18.0); BG VENT MODE MASK - BIPAP; BG VENT RATE 16 set
[2018-10-13] MEDS: NOREPINEPHRINE 8 MG in DEXT 5% WATER 242 ML IV PRN ×2 (03:45→08:42)
[2018-10-13] MEDS: PHENYLEPHRINE 80 MG in DEXT 5% WATER 492 ML IV PRN ×2 (03:45→16:18)
[2018-10-13] MEDS: BLOOD SUGAR DIAGNOSTIC STRIP TEST SCH ×4 (05:35→21:00)
[2018-10-13] MEDS: BACLOFEN 10MG TABLET PO SCH ×2 (05:35→13:38)
[2018-10-13] MEDS: GABAPENTIN 100MG CAPSULE PO SCH ×3 (05:35→22:00)
[2018-10-13] MEDS: SEVELAMER CARBONATE 800 MG TABLET PO SCH ×3 (05:35→18:56)
[2018-10-13 06:09] LABS: HEMATOCRIT. 24.1 % (36.0-48.0); HEMOGLOBIN. 8.1 g/dL (12.0-16.0); MEAN CORPUSCULAR VOLUME 100.6 fL (81.0-99.0); MEAN PLATELET VOLUME 10.6 fl (7.4-10.4); PLATELET 73 x1000/uL (130-400); RED CELL DISTRIBUTION WIDTH 15.8 % (11.6-14.6)
[2018-10-13] MEDS: INSULIN LISPRO 100 UNITS/ML SUBCUT SCH ×4 (07:00→21:00)
[2018-10-13] MEDS: DEXT 5%/0.9% NACL 1,000 ML IV SCH (07:12)
[2018-10-13] MEDS: ASPIRIN 81MG EC TABLET PO SCH (08:42)
[2018-10-13] MEDS: AMIODARONE HCL 200 MG TABLET PO SCH ×3 (08:43→22:03)
[2018-10-13] MEDS: MIDODRINE HCL 5MG TABLET PO SCH ×3 (08:43→18:56)
[2018-10-13] MEDS ORDERED: MAGNESIUM 1 G PREMIX 100 ML IV SCH (08:45)
[2018-10-13] MEDS ORDERED: NOREPINEPHRINE IV PRN (09:00)
[2018-10-13] MEDS ORDERED: SODIUM CHLORIDE 0.45% IV PRN (09:00)
[2018-10-13] MEDS: PHENYLEPHRINE IV PRN (09:35)
[2018-10-13] MEDS: SODIUM CHLORIDE 0.45% IV PRN ×4 (09:35→21:51)
[2018-10-13] MEDS ORDERED: IPRATROPIUM BROMIDE (0.02%) 0.5MG/2.5ML NEB HHN PRN (10:45)
[2018-10-13] MEDS ORDERED: SODIUM CHLORIDE 3% 250 ML IV ONE (11:00)
[2018-10-13] MEDS: PROPOFOL 10MG/ML 100ML 100 ML IV PRN (11:11)
[2018-10-13 11:16] LABS: BG BASE EXCESS -2.4 mmol/L (-2.0-2.0); BG CARBOXYHEMOGLOBIN 0.2 % (0.5-1.5); BG FRACTION INSPIRED OXYGEN 100; BG HCO3 ACT 22.4 mmol/L (22.0-26.0); BG METHEMOGLOBIN 1.6 % (0.0-1.5); BG OXYHEMOGLOBIN 97.2 % (94.0-97.0); BG PCO2 38.3 mmHg (35.0-45.0); BG PH 7.385 (7.350-7.450); BG PO2 330.4 mmHg (75.0-100.0); BG SAMPLE SITE LEFT BRACHIAL; BG TIDAL VOLUME(mL) 400 mL; BG TOTAL HEMOGLOBIN 8.7 g/dL (12.0-18.0); BG VENT MODE VENT - A/C; BG VENT RATE 14 set
[2018-10-13] MEDS: IPRATROPIUM BROMIDE (0.02%) 0.5MG/2.5ML NEB HHN SCH ×3 (11:45→20:18)
[2018-10-13] MEDS: DILTIAZEM HCL IV PRN (13:32)
[2018-10-13 14:26] LABS: PLATELET ESTIMATE DECREASED
[2018-10-13] MEDS ORDERED: SUCCINYLCHOLINE CHLORIDE 200MG/10ML IV ONE (15:51)
[2018-10-13] MEDS ORDERED: ETOMIDATE 2MG/ML 10ML VIAL IV ONE (15:51)
[2018-10-13] MEDS: NOREPINEPHRINE IV PRN ×2 (16:18→21:51)
[2018-10-13 18:06] LABS: HEMOGLOBIN 7.4 g/dL (12.0-16.0)
[2018-10-13] MEDS: PANTOPRAZOLE SODIUM 40 MG/VIAL IV SCH (18:55)
[2018-10-13] MEDS: FOLIC ACID/VITAMIN B COMP W-C TABLET PO SCH (22:03)
[2018-10-14] VITALS (89 sets, daily range): BP systolic 71–121; BP diastolic 41–84
[2018-10-14] MEDS: PIPERACILLIN/TAZ 2.25G PREMIX 50 ML IV SCH ×3 (00:50→21:59)
[2018-10-14] MEDS: PHENYLEPHRINE IV PRN ×3 (00:52→17:23)
[2018-10-14] MEDS: SODIUM CHLORIDE 0.45% IV PRN ×6 (00:52→22:40)
[2018-10-14] MEDS: IPRATROPIUM BROMIDE (0.02%) 0.5MG/2.5ML NEB HHN SCH ×5 (01:03→19:56)
[2018-10-14 01:32] LABS: HEMATOCRIT 33.5 % (36.0-48.0); HEMOGLOBIN 11.2 g/dL (12.0-16.0)
[2018-10-14] MEDS: DEXTROSE 50% WATER 50ML SYRINGE IV PRN ×2 (05:34→12:15)
[2018-10-14] MEDS: NOREPINEPHRINE IV PRN ×2 (05:35→13:45)
[2018-10-14 05:41] LABS: HEMATOCRIT. 30.9 % (36.0-48.0); HEMOGLOBIN. 10.4 g/dL (12.0-16.0); MEAN CORPUSCULAR HEMOGLOBIN 31.9 pg (28.0-32.0); MEAN CORPUSCULAR VOLUME 94.7 fL (81.0-99.0); MEAN PLATELET VOLUME 9.8 fl (7.4-10.4); PLATELET 56 x1000/uL (130-400); RED BLOOD CELL COUNT 3.26 mill/uL (4.2-5.4); RED CELL DISTRIBUTION WIDTH 16.2 % (11.6-14.6)
[2018-10-14] MEDS: BLOOD SUGAR DIAGNOSTIC STRIP TEST SCH ×4 (05:41→21:07)
[2018-10-14] MEDS: GABAPENTIN 100MG CAPSULE PO SCH ×4 (05:41→22:26)
[2018-10-14 05:44] LABS: CHLORIDE 86 mEq/L (98-107)
[2018-10-14] MEDS: INSULIN LISPRO 100 UNITS/ML SUBCUT SCH ×4 (06:43→21:00)
[2018-10-14 07:20] LABS: PLATELET ESTIMATE DECREASED
[2018-10-14] MEDS ORDERED: SODIUM CHLORIDE 3% 250 ML IV NR (08:00)
[2018-10-14 08:14] LABS: BG BASE EXCESS -7.8 mmol/L (-2.0-2.0); BG CARBOXYHEMOGLOBIN 0.4 % (0.5-1.5); BG DEOXYHEMOGLOBIN 4.4 % (0.0-5.0); BG FRACTION INSPIRED OXYGEN 40; BG HCO3 ACT 17.2 mmol/L (22.0-26.0); BG METHEMOGLOBIN 0.2 % (0.0-1.5); BG OXYGEN SATURATION 95.6 % (92.0-98.5); BG PCO2 33.8 mmHg (35.0-45.0); BG PH 7.324 (7.350-7.450); BG PO2 81.8 mmHg (75.0-100.0); BG SAMPLE SITE LEFT BRACHIAL; BG TIDAL VOLUME(mL) 400 mL; BG TOTAL HEMOGLOBIN 13.6 g/dL (12.0-18.0); BG VENT MODE VENT - A/C; BG VENT RATE 14 set
[2018-10-14] MEDS: FOLIC ACID/VITAMIN B COMP W-C TABLET PO SCH (08:22)
[2018-10-14] MEDS: PANTOPRAZOLE SODIUM 40 MG/VIAL IV SCH ×2 (08:22→17:21)
[2018-10-14] MEDS: AMIODARONE HCL 200 MG TABLET PO SCH ×2 (08:22→21:07)
[2018-10-14] MEDS: SEVELAMER CARBONATE 800 MG TABLET PO SCH ×3 (08:22→17:21)
[2018-10-14] MEDS: MIDODRINE HCL 5MG TABLET PO SCH ×3 (08:22→17:22)
[2018-10-14] MEDS: PROPOFOL 10MG/ML 100ML 100 ML IV PRN (08:35)
[2018-10-14 09:22] LABS: INR 1.9; PROTHROMBIN TIME 18.5 sec (9.1-11.1)
[2018-10-14 09:44] LABS: T4 FREE 1.5 ng/dL (0.76-1.46)
[2018-10-14] MEDS ORDERED: LEVETIRACETAM 500MG PREMIX 100 ML IV ONE (10:15)
[2018-10-14] MEDS ORDERED: LEVETIRACETAM 250 MG in SODIUM CHLORIDE 0.9% 100 ML IV SCH (10:15)
[2018-10-14] MEDS ORDERED: LEVETIRACETAM 500MG in SODIUM CHLORIDE 0.9% 100ML IV SCH (11:00)
[2018-10-14] MEDS ORDERED: VANCOMYCIN 1 G PREMIX 200 ML IV SCH (12:30)
[2018-10-14 12:32] LABS: HEMOGLOBIN. 10.2 g/dL (12.0-16.0); MEAN CORPUSCULAR HEMOGLOBIN 32.2 pg (28.0-32.0); MEAN PLATELET VOLUME 10.7 fl (7.4-10.4); PLATELET 53 x1000/uL (130-400); RED BLOOD CELL COUNT 3.15 mill/uL (4.2-5.4)
[2018-10-14 13:44] LABS: PLATELET ESTIMATE DECREASED
[2018-10-14 14:17] LABS: FOLIC ACID (FOLATE) SERUM >20 ng/mL ng/mL (>5.38)
[2018-10-14 14:28] LABS: VITAMIN B12 SERUM 781 pg/mL (211-911)
[2018-10-14 20:03] LABS: HEMOGLOBIN. 10.7 g/dL (12.0-16.0); MEAN CORPUSCULAR VOLUME 98.4 fL (81.0-99.0); MEAN PLATELET VOLUME 10.9 fl (7.4-10.4); PLATELET 56 x1000/uL (130-400); RED BLOOD CELL COUNT 3.25 mill/uL (4.2-5.4); RED CELL DISTRIBUTION WIDTH 17.5 % (11.6-14.6)
[2018-10-14 20:25] LABS: PLATELET ESTIMATE DECREASED
[2018-10-14] MEDS: LEVETIRACETAM 500 MG in SODIUM CHLORIDE 0.9% 100 ML IV SCH (21:07)
[2018-10-14] MEDS: SODIUM CHLORIDE 3% 500 ML IV SCH (22:26)
[2018-10-14] MEDS: DILTIAZEM HCL IV PRN (22:40)
[2018-10-15] VITALS (82 sets, daily range): BP systolic 53–160; BP diastolic 30–85
[2018-10-15] MEDS: IPRATROPIUM BROMIDE (0.02%) 0.5MG/2.5ML NEB HHN SCH ×6 (00:08→20:26)
[2018-10-15] MEDS: PHENYLEPHRINE IV PRN ×3 (02:23→16:39)
[2018-10-15] MEDS: SODIUM CHLORIDE 0.45% IV PRN ×6 (02:23→18:43)
[2018-10-15] MEDS: NOREPINEPHRINE IV PRN ×3 (02:24→18:43)
[2018-10-15 02:35] LABS: HEMATOCRIT. 34.4 % (36.0-48.0); HEMOGLOBIN. 11.4 g/dL (12.0-16.0); MEAN CORPUSCULAR HEMOGLOBIN 32.2 pg (28.0-32.0); MEAN CORPUSCULAR VOLUME 97.4 fL (81.0-99.0); MEAN PLATELET VOLUME 11.7 fl (7.4-10.4); RED BLOOD CELL COUNT 3.53 mill/uL (4.2-5.4); RED CELL DISTRIBUTION WIDTH 17.3 % (11.6-14.6)
[2018-10-15 03:05] LABS: PLATELET 41 x1000/uL (130-400)
[2018-10-15] MEDS: PIPERACILLIN/TAZ 2.25G PREMIX 50 ML IV SCH ×3 (05:09→23:22)
[2018-10-15] MEDS: GABAPENTIN 100MG CAPSULE PO SCH ×3 (05:09→21:22)
[2018-10-15] MEDS: DEXTROSE 50% WATER 50ML SYRINGE IV PRN (05:36)
[2018-10-15] MEDS: BLOOD SUGAR DIAGNOSTIC STRIP TEST SCH ×4 (06:19→21:00)
[2018-10-15] MEDS: INSULIN LISPRO 100 UNITS/ML SUBCUT SCH ×4 (06:19→21:00)
[2018-10-15 06:46] LABS: HEMATOCRIT. 33.3 % (36.0-48.0); MEAN CORPUSCULAR HEMOGLOBIN 32.3 pg (28.0-32.0); MEAN CORPUSCULAR VOLUME 97.8 fL (81.0-99.0); MEAN PLATELET VOLUME 11.6 fl (7.4-10.4); RED BLOOD CELL COUNT 3.41 mill/uL (4.2-5.4); RED CELL DISTRIBUTION WIDTH 17.5 % (11.6-14.6)
[2018-10-15] MEDS: SEVELAMER CARBONATE 800 MG TABLET PO SCH ×3 (07:03→16:47)
[2018-10-15 07:21] LABS: PLATELET 34 x1000/uL (130-400)
[2018-10-15 07:37] LABS: BG BASE EXCESS -11.3 mmol/L (-2.0-2.0); BG CARBOXYHEMOGLOBIN 0.3 % (0.5-1.5); BG DEOXYHEMOGLOBIN 5.8 % (0.0-5.0); BG HCO3 ACT 13.9 mmol/L (22.0-26.0); BG METHEMOGLOBIN 0.2 % (0.0-1.5); BG OXYGEN SATURATION 94.2 % (92.0-98.5); BG OXYHEMOGLOBIN 93.7 % (94.0-97.0); BG PCO2 29.1 mmHg (35.0-45.0); BG PH 7.296 (7.350-7.450); BG PO2 75.1 mmHg (75.0-100.0); BG SAMPLE SITE LEFT RADIAL; BG TIDAL VOLUME(mL) 400 mL; BG TOTAL HEMOGLOBIN 11.1 g/dL (12.0-18.0); BG VENT MODE VENT - A/C; BG VENT RATE 16 set
[2018-10-15] MEDS: PANTOPRAZOLE SODIUM 40 MG/VIAL IV SCH ×2 (08:20→16:47)
[2018-10-15] MEDS: MIDODRINE HCL 5MG TABLET PO SCH ×3 (08:20→16:47)
[2018-10-15] MEDS: LEVETIRACETAM 500 MG in SODIUM CHLORIDE 0.9% 100 ML IV SCH ×2 (08:20→21:22)
[2018-10-15] MEDS: FOLIC ACID/VITAMIN B COMP W-C TABLET PO SCH (08:20)
[2018-10-15] MEDS: AMIODARONE HCL 200 MG TABLET PO SCH ×2 (08:20→21:22)
[2018-10-15] MEDS ORDERED: SODIUM BICARBONATE 8.4% 1 MEQ/ML 50ML SYR IV NR (08:30)
[2018-10-15 11:30] LABS: PLATELET ESTIMATE MARKEDLY DECREASED
[2018-10-15 12:59] LABS: HEPATITIS B SURFACE ANTIGEN NEGATIVE
[2018-10-15 13:06] LABS: PLATELET ESTIMATE MARKEDLY DECREASED
[2018-10-15] MEDS: SODIUM CHLORIDE 3% 500 ML IV SCH (13:21)
[2018-10-15 13:29] LABS: HEPATITIS A AB IGM NEGATIVE (NEGATIVE)
[2018-10-15] MEDS: VASOPRESSIN 10 UNIT in SODIUM CHLORIDE 0.9% 99.5 ML IV PRN ×2 (14:22→18:42)
[2018-10-15 15:45] LABS: INR 2.1; PROTHROMBIN TIME 20.8 sec (9.1-11.1)
[2018-10-15 15:48] LABS: HEMATOCRIT. 29.8 % (36.0-48.0); MEAN CORPUSCULAR HEMOGLOBIN 32.2 pg (28.0-32.0); MEAN PLATELET VOLUME 11.4 fl (7.4-10.4); RED BLOOD CELL COUNT 3.11 mill/uL (4.2-5.4); RED CELL DISTRIBUTION WIDTH 16.6 % (11.6-14.6)
[2018-10-15 20:10] LABS: PLATELET ESTIMATE MARKEDLY DECREASED
[2018-10-15 20:11] LABS: PLATELET 23 x1000/uL (130-400)
[2018-10-15 23:05] LABS: HEMATOCRIT. 31.6 % (36.0-48.0); HEMOGLOBIN. 10.4 g/dL (12.0-16.0); MEAN CORPUSCULAR HEMOGLOBIN 31.2 pg (28.0-32.0); MEAN CORPUSCULAR VOLUME 94.4 fL (81.0-99.0); MEAN PLATELET VOLUME 10.9 fl (7.4-10.4); RED BLOOD CELL COUNT 3.34 mill/uL (4.2-5.4); RED CELL DISTRIBUTION WIDTH 17.2 % (11.6-14.6)
[2018-10-15 23:06] LABS: PLATELET 16 x1000/uL (130-400)
[2018-10-15 23:27] LABS: PLATELET ESTIMATE MARKEDLY DECREASED
[2018-10-16] VITALS (67 sets, daily range): BP systolic 86–151; BP diastolic 48–94
[2018-10-16] MEDS: IPRATROPIUM BROMIDE (0.02%) 0.5MG/2.5ML NEB HHN SCH ×6 (00:35→20:21)
[2018-10-16] MEDS: BLOOD SUGAR DIAGNOSTIC STRIP TEST SCH ×4 (01:00→16:30)
[2018-10-16 05:30] LABS: HEMATOCRIT. 30.8 % (36.0-48.0); HEMOGLOBIN. 10.6 g/dL (12.0-16.0); MEAN CORPUSCULAR HEMOGLOBIN 32.4 pg (28.0-32.0); MEAN CORPUSCULAR VOLUME 94.1 fL (81.0-99.0); MEAN PLATELET VOLUME 9.9 fl (7.4-10.4); RED BLOOD CELL COUNT 3.28 mill/uL (4.2-5.4); RED CELL DISTRIBUTION WIDTH 16.7 % (11.6-14.6)
[2018-10-16 06:00] LABS: PLATELET 20 x1000/uL (130-400)
[2018-10-16] MEDS: INSULIN LISPRO 100 UNITS/ML SUBCUT SCH ×4 (07:00→21:00)
[2018-10-16] MEDS: SODIUM CHLORIDE 0.45% IV PRN ×4 (07:34→17:53)
[2018-10-16] MEDS: DILTIAZEM HCL IV PRN (07:34)
[2018-10-16] MEDS: GABAPENTIN 100MG CAPSULE PO SCH ×2 (07:40→14:26)
[2018-10-16] MEDS: PIPERACILLIN/TAZ 2.25G PREMIX 50 ML IV SCH ×2 (07:40→14:26)
[2018-10-16] MEDS: NOREPINEPHRINE IV PRN ×2 (07:41→17:53)
[2018-10-16] MEDS: SEVELAMER CARBONATE 800 MG TABLET PO SCH ×3 (07:48→17:53)
[2018-10-16] MEDS: VASOPRESSIN 10 UNIT in SODIUM CHLORIDE 0.9% 99.5 ML IV PRN (07:49)
[2018-10-16] MEDS: AMIODARONE HCL 200 MG TABLET PO SCH (08:02)
[2018-10-16] MEDS: PANTOPRAZOLE SODIUM 40 MG/VIAL IV SCH ×2 (08:02→19:03)
[2018-10-16] MEDS: MIDODRINE HCL 5MG TABLET PO SCH ×3 (08:03→17:53)
[2018-10-16] MEDS: FOLIC ACID/VITAMIN B COMP W-C TABLET PO SCH (08:03)
[2018-10-16] MEDS: PHENYLEPHRINE IV PRN (08:03)
[2018-10-16] MEDS ORDERED: VANCOMYCIN 1 G PREMIX 200 ML IV NR (11:00)
[2018-10-16] MEDS ORDERED: SODIUM BICARBONATE 100 MEQ in SODIUM CHLORIDE 0.45% 1,000 ML IV SCH (12:00)
[2018-10-16 12:38] LABS: PLATELET ESTIMATE MARKEDLY DECREASED
[2018-10-16] MEDS: LEVETIRACETAM 500 MG in SODIUM CHLORIDE 0.9% 100 ML IV SCH ×2 (12:45→21:00)
[2018-10-16 13:21] LABS: HEMATOCRIT. 26.5 % (36.0-48.0); MEAN CORPUSCULAR HEMOGLOBIN 32.5 pg (28.0-32.0); MEAN CORPUSCULAR VOLUME 95.5 fL (81.0-99.0); MEAN PLATELET VOLUME 9.5 fl (7.4-10.4); PLATELET 81 x1000/uL (130-400); RED BLOOD CELL COUNT 2.77 mill/uL (4.2-5.4); RED CELL DISTRIBUTION WIDTH 16.6 % (11.6-14.6)
[2018-10-16 14:28] LABS: PLATELET ESTIMATE DECREASED
[2018-10-16] MEDS: FLUCONAZOLE 100MG TABLET PO SCH (17:53)
[2018-10-16] MEDS ORDERED: PROPOFOL 10MG/ML 100ML 100 ML IV PRN (20:30)
[2018-10-16 20:54] LABS: HEMATOCRIT. 28.6 % (36.0-48.0); HEMOGLOBIN. 9.7 g/dL (12.0-16.0); MEAN CORPUSCULAR VOLUME 97.2 fL (81.0-99.0); MEAN PLATELET VOLUME 9.8 fl (7.4-10.4); PLATELET 61 x1000/uL (130-400); RED BLOOD CELL COUNT 2.95 mill/uL (4.2-5.4)
[2018-10-16 21:57] LABS: NUCLEATED RED BLOOD CELLS 1 /100 WBC
[2018-10-16 21:58] LABS: PLATELET ESTIMATE DECREASED
[2018-10-17] VITALS (71 sets, daily range): BP systolic 102–158; BP diastolic 61–110
[2018-10-17] MEDS: IPRATROPIUM BROMIDE (0.02%) 0.5MG/2.5ML NEB HHN SCH ×6 (00:05→20:14)
[2018-10-17] MEDS: GABAPENTIN 100MG CAPSULE PO SCH ×4 (01:25→22:19)
[2018-10-17] MEDS: AMIODARONE HCL 200 MG TABLET PO SCH ×3 (01:25→22:19)
[2018-10-17] MEDS: PIPERACILLIN/TAZ 2.25G PREMIX 50 ML IV SCH ×4 (01:26→22:20)
[2018-10-17] MEDS: SEVELAMER CARBONATE 800 MG TABLET PO SCH ×3 (06:24→17:26)
[2018-10-17] MEDS: BLOOD SUGAR DIAGNOSTIC STRIP TEST SCH ×4 (06:37→21:00)
[2018-10-17 06:43] LABS: HEMATOCRIT. 26.6 % (36.0-48.0); HEMOGLOBIN. 9.3 g/dL (12.0-16.0); MEAN CORPUSCULAR HEMOGLOBIN 33.9 pg (28.0-32.0); MEAN CORPUSCULAR VOLUME 96.9 fL (81.0-99.0); MEAN PLATELET VOLUME 10.9 fl (7.4-10.4); RED BLOOD CELL COUNT 2.74 mill/uL (4.2-5.4); RED CELL DISTRIBUTION WIDTH 16.9 % (11.6-14.6)
[2018-10-17] MEDS: INSULIN LISPRO 100 UNITS/ML SUBCUT SCH ×4 (07:00→21:00)
[2018-10-17 07:10] LABS: PLATELET 47 x1000/uL (130-400)
[2018-10-17 08:47] LABS: BG CARBOXYHEMOGLOBIN 0.3 % (0.5-1.5); BG DEOXYHEMOGLOBIN 7.1 % (0.0-5.0); BG FRACTION INSPIRED OXYGEN 40; BG HCO3 ACT 16.8 mmol/L (22.0-26.0); BG METHEMOGLOBIN 0.2 % (0.0-1.5); BG OXYGEN SATURATION 92.9 % (92.0-98.5); BG OXYHEMOGLOBIN 92.4 % (94.0-97.0); BG PCO2 31.9 mmHg (35.0-45.0); BG SAMPLE SITE LEFT RADIAL; BG TIDAL VOLUME(mL) 400 mL; BG TOTAL HEMOGLOBIN 9.2 g/dL (12.0-18.0); BG VENT MODE VENT - A/C; BG VENT RATE 20 set
[2018-10-17] MEDS: LEVETIRACETAM 500 MG in SODIUM CHLORIDE 0.9% 100 ML IV SCH ×2 (10:40→21:00)
[2018-10-17] MEDS: PANTOPRAZOLE SODIUM 40 MG/VIAL IV SCH ×2 (10:40→17:26)
[2018-10-17] MEDS: MIDODRINE HCL 5MG TABLET PO SCH ×3 (10:41→17:26)
[2018-10-17] MEDS: FOLIC ACID/VITAMIN B COMP W-C TABLET PO SCH (10:41)
[2018-10-17] MEDS: FLUCONAZOLE 100MG TABLET PO SCH (10:41)
[2018-10-17 10:48] LABS: PLATELET ESTIMATE MARKEDLY DECREASED
[2018-10-17] MEDS: SODIUM CHLORIDE 0.45% IV PRN (11:31)
[2018-10-17] MEDS: NOREPINEPHRINE IV PRN (11:31)
[2018-10-17] MEDS: DEXTROSE 50% WATER 50ML SYRINGE IV PRN (12:23)
[2018-10-18] VITALS (102 sets, daily range): BP systolic 59–140; BP diastolic 38–95
[2018-10-18] MEDS: IPRATROPIUM BROMIDE (0.02%) 0.5MG/2.5ML NEB HHN SCH ×6 (00:24→20:31)
[2018-10-18 06:08] LABS: HEMATOCRIT. 28.7 % (36.0-48.0); MEAN CORPUSCULAR VOLUME 94.9 fL (81.0-99.0); MEAN PLATELET VOLUME 10.2 fl (7.4-10.4); RED BLOOD CELL COUNT 3.02 mill/uL (4.2-5.4); RED CELL DISTRIBUTION WIDTH 16.7 % (11.6-14.6)
[2018-10-18 06:30] LABS: PLATELET 16 x1000/uL (130-400)
[2018-10-18] MEDS: INSULIN LISPRO 100 UNITS/ML SUBCUT SCH ×4 (07:00→21:00)
[2018-10-18] MEDS: GABAPENTIN 100MG CAPSULE PO SCH ×3 (07:00→21:32)
[2018-10-18] MEDS: PIPERACILLIN/TAZ 2.25G PREMIX 50 ML IV SCH ×3 (07:17→21:31)
[2018-10-18] MEDS: BLOOD SUGAR DIAGNOSTIC STRIP TEST SCH ×4 (07:18→21:00)
[2018-10-18] MEDS: SEVELAMER CARBONATE 800 MG TABLET PO SCH ×3 (07:19→17:12)
[2018-10-18 08:01] LABS: PLATELET ESTIMATE MARKEDLY DECREASED
[2018-10-18] MEDS: NOREPINEPHRINE IV PRN ×2 (08:31→22:09)
[2018-10-18] MEDS: SODIUM CHLORIDE 0.45% IV PRN ×3 (08:31→22:09)
[2018-10-18] MEDS: AMIODARONE HCL 200 MG TABLET PO SCH ×2 (08:58→21:32)
[2018-10-18] MEDS: PANTOPRAZOLE SODIUM 40 MG/VIAL IV SCH ×2 (08:58→17:12)
[2018-10-18] MEDS: FOLIC ACID/VITAMIN B COMP W-C TABLET PO SCH (08:58)
[2018-10-18] MEDS: FLUCONAZOLE 100MG TABLET PO SCH (08:58)
[2018-10-18] MEDS: MIDODRINE HCL 5MG TABLET PO SCH ×3 (08:58→17:12)
[2018-10-18] MEDS: LEVETIRACETAM 500 MG in SODIUM CHLORIDE 0.9% 100 ML IV SCH ×2 (08:59→21:31)
[2018-10-18] MEDS ORDERED: POTASSIUM CHLORIDE 20MEQ/PACKET PO NR (09:00)
[2018-10-18] MEDS ORDERED: VANCOMYCIN 500 MG PREMIX 100 ML IV NR ×2 (18:00)
[2018-10-18] MEDS: PHENYLEPHRINE IV PRN (18:09)
[2018-10-18] MEDS ORDERED: ALBUMIN HUMAN 25GM/100ML (25%) IV NR (18:30)
[2018-10-18] MEDS: VASOPRESSIN 10 UNIT in SODIUM CHLORIDE 0.9% 99.5 ML IV PRN (19:01)
[2018-10-18] MEDS: DEXTROSE 50% WATER 50ML SYRINGE IV PRN (21:49)
[2018-10-19] VITALS (82 sets, daily range): BP systolic 54–130; BP diastolic 23–93
[2018-10-19] MEDS: IPRATROPIUM BROMIDE (0.02%) 0.5MG/2.5ML NEB HHN SCH ×6 (00:15→20:27)
[2018-10-19 00:31] LABS: BG BASE EXCESS -5.6 mmol/L (-2.0-2.0); BG CARBOXYHEMOGLOBIN 0.7 % (0.5-1.5); BG DEOXYHEMOGLOBIN 16.5 % (0.0-5.0); BG FRACTION INSPIRED OXYGEN 50; BG METHEMOGLOBIN 0.4 % (0.0-1.5); BG OXYGEN SATURATION 83.3 % (92.0-98.5); BG OXYHEMOGLOBIN 82.4 % (94.0-97.0); BG PCO2 39.5 mmHg (35.0-45.0); BG PH 7.322 (7.350-7.450); BG PO2 52.8 mmHg (75.0-100.0); BG SAMPLE SITE LEFT FEMORAL; BG TIDAL VOLUME(mL) 400 mL; BG TOTAL HEMOGLOBIN 9.3 g/dL (12.0-18.0); BG VENT MODE VENT - A/C; BG VENT RATE 20 set
[2018-10-19] MEDS: SODIUM CHLORIDE 0.45% IV PRN ×3 (01:43→23:08)
[2018-10-19] MEDS: PHENYLEPHRINE IV PRN ×2 (01:43→16:25)
[2018-10-19] MEDS: DEXTROSE 50% WATER 50ML SYRINGE IV PRN (05:55)
[2018-10-19] MEDS: PIPERACILLIN/TAZ 2.25G PREMIX 50 ML IV SCH ×3 (05:55→21:18)
[2018-10-19] MEDS: BLOOD SUGAR DIAGNOSTIC STRIP TEST SCH ×4 (05:56→21:19)
[2018-10-19] MEDS: GABAPENTIN 100MG CAPSULE PO SCH ×3 (06:22→21:18)
[2018-10-19] MEDS: SEVELAMER CARBONATE 800 MG TABLET PO SCH ×3 (06:22→16:52)
[2018-10-19] MEDS: INSULIN LISPRO 100 UNITS/ML SUBCUT SCH ×4 (06:22→21:00)
[2018-10-19 08:00] LABS: BG BASE EXCESS -4.9 mmol/L (-2.0-2.0); BG CARBOXYHEMOGLOBIN 0.7 % (0.5-1.5); BG DEOXYHEMOGLOBIN 2.3 % (0.0-5.0); BG FRACTION INSPIRED OXYGEN 80; BG METHEMOGLOBIN 0.3 % (0.0-1.5); BG OXYGEN SATURATION 97.7 % (92.0-98.5); BG OXYHEMOGLOBIN 96.7 % (94.0-97.0); BG PCO2 42.5 mmHg (35.0-45.0); BG PH 7.312 (7.350-7.450); BG PO2 115.3 mmHg (75.0-100.0); BG SAMPLE SITE RIGHT RADIAL; BG TIDAL VOLUME(mL) 400 mL; BG TOTAL HEMOGLOBIN 8.6 g/dL (12.0-18.0); BG VENT MODE VENT - A/C; BG VENT RATE 20 set
[2018-10-19] MEDS: FLUCONAZOLE 100MG TABLET PO SCH (09:38)
[2018-10-19] MEDS: PANTOPRAZOLE SODIUM 40 MG/VIAL IV SCH ×2 (09:38→16:51)
[2018-10-19] MEDS: FOLIC ACID/VITAMIN B COMP W-C TABLET PO SCH (09:38)
[2018-10-19] MEDS: MIDODRINE HCL 5MG TABLET PO SCH ×3 (09:38→16:52)
[2018-10-19] MEDS: AMIODARONE HCL 200 MG TABLET PO SCH ×2 (09:38→21:18)
[2018-10-19] MEDS: LEVETIRACETAM 500 MG in SODIUM CHLORIDE 0.9% 100 ML IV SCH ×2 (09:38→21:18)
[2018-10-19 10:04] LABS: HEMATOCRIT. 23.6 % (36.0-48.0); MEAN CORPUSCULAR HEMOGLOBIN 32.9 pg (28.0-32.0); MEAN CORPUSCULAR VOLUME 96.9 fL (81.0-99.0); MEAN PLATELET VOLUME 10.2 fl (7.4-10.4); RED BLOOD CELL COUNT 2.44 mill/uL (4.2-5.4); RED CELL DISTRIBUTION WIDTH 16.9 % (11.6-14.6)
[2018-10-19 10:27] LABS: PLATELET 18 x1000/uL (130-400)
[2018-10-19] MEDS: DEXT 10% WATER 1,000 ML IV SCH (11:29)
[2018-10-19] MEDS ORDERED: DEXTROSE 10% WATER 500 ML IV SCH (11:30)
[2018-10-19] MEDS ORDERED: VANCOMYCIN 500 MG PREMIX 100 ML IV NR (13:00)
[2018-10-19 13:44] LABS: NUCLEATED RED BLOOD CELLS 1 /100 WBC; PLATELET ESTIMATE MARKEDLY DECREASED
[2018-10-19] MEDS: VASOPRESSIN 10 UNIT in SODIUM CHLORIDE 0.9% 99.5 ML IV PRN ×2 (14:14→23:08)
[2018-10-19] MEDS ORDERED: MICAFUNGIN 100 MG in SODIUM CHLORIDE 0.9% 100 ML IV SCH (15:00)
[2018-10-19] MEDS: NOREPINEPHRINE IV PRN (23:08)
[2018-10-20] VITALS (80 sets, daily range): BP systolic 73–157; BP diastolic 39–87
[2018-10-20] MEDS: IPRATROPIUM BROMIDE (0.02%) 0.5MG/2.5ML NEB HHN SCH ×6 (00:14→20:42)
[2018-10-20] MEDS: GABAPENTIN 100MG CAPSULE PO SCH ×3 (06:16→21:23)
[2018-10-20] MEDS: SEVELAMER CARBONATE 800 MG TABLET PO SCH ×3 (06:16→17:55)
[2018-10-20] MEDS: PIPERACILLIN/TAZ 2.25G PREMIX 50 ML IV SCH ×3 (06:17→21:22)
[2018-10-20] MEDS: DEXTROSE 50% WATER 50ML SYRINGE IV PRN ×2 (06:17→21:35)
[2018-10-20 06:20] LABS: HEMATOCRIT. 25.1 % (36.0-48.0); HEMOGLOBIN. 8.5 g/dL (12.0-16.0); MEAN CORPUSCULAR HEMOGLOBIN 32.9 pg (28.0-32.0); MEAN CORPUSCULAR VOLUME 97.2 fL (81.0-99.0); RED BLOOD CELL COUNT 2.59 mill/uL (4.2-5.4)
[2018-10-20 06:28] LABS: PLATELET 10 x1000/uL (130-400)
[2018-10-20] MEDS: INSULIN LISPRO 100 UNITS/ML SUBCUT SCH ×4 (07:00→21:00)
[2018-10-20] MEDS: SODIUM CHLORIDE 0.45% IV PRN ×2 (07:03→17:01)
[2018-10-20] MEDS: PHENYLEPHRINE IV PRN ×2 (07:03→17:01)
[2018-10-20] MEDS: BLOOD SUGAR DIAGNOSTIC STRIP TEST SCH ×4 (07:22→21:35)
[2018-10-20 07:33] LABS: PLATELET ESTIMATE MARKEDLY DECREASED
[2018-10-20] MEDS: FOLIC ACID/VITAMIN B COMP W-C TABLET PO SCH (09:13)
[2018-10-20] MEDS: PANTOPRAZOLE SODIUM 40 MG/VIAL IV SCH ×2 (09:13→17:55)
[2018-10-20] MEDS: LEVETIRACETAM 500 MG in SODIUM CHLORIDE 0.9% 100 ML IV SCH ×2 (09:13→21:22)
[2018-10-20] MEDS: MIDODRINE HCL 5MG TABLET PO SCH ×3 (09:13→17:55)
[2018-10-20] MEDS ORDERED: POTASSIUM CHLORIDE 20MEQ/PACKET PO SCH (10:00)
[2018-10-20] MEDS: DEXT 10% WATER 1,000 ML IV SCH (20:45)
[2018-10-20] MEDS ORDERED: EPOETIN ALFA 10000UNITS/ML VIAL SUBCUT SCH (21:00)
[2018-10-21] VITALS (78 sets, daily range): BP systolic 76–123; BP diastolic 31–96
[2018-10-21] MEDS: IPRATROPIUM BROMIDE (0.02%) 0.5MG/2.5ML NEB HHN SCH ×5 (00:13→20:38)
[2018-10-21] MEDS: SODIUM CHLORIDE 0.45% IV PRN ×4 (01:07→18:08)
[2018-10-21] MEDS: PHENYLEPHRINE IV PRN ×3 (01:07→18:08)
[2018-10-21] MEDS: NOREPINEPHRINE IV PRN (01:37)
[2018-10-21] MEDS: INSULIN LISPRO 100 UNITS/ML SUBCUT SCH ×4 (06:39→21:00)
[2018-10-21] MEDS: SEVELAMER CARBONATE 800 MG TABLET PO SCH ×3 (06:39→18:06)
[2018-10-21] MEDS: BLOOD SUGAR DIAGNOSTIC STRIP TEST SCH ×4 (06:39→21:08)
[2018-10-21] MEDS: GABAPENTIN 100MG CAPSULE PO SCH ×3 (06:39→21:07)
[2018-10-21] MEDS: PIPERACILLIN/TAZ 2.25G PREMIX 50 ML IV SCH ×3 (07:38→21:27)
[2018-10-21] MEDS: FOLIC ACID/VITAMIN B COMP W-C TABLET PO SCH (09:26)
[2018-10-21] MEDS: PANTOPRAZOLE SODIUM 40 MG/VIAL IV SCH ×2 (09:26→17:00)
[2018-10-21] MEDS: LEVETIRACETAM 500 MG in SODIUM CHLORIDE 0.9% 100 ML IV SCH ×2 (09:26→21:08)
[2018-10-21] MEDS: MIDODRINE HCL 5MG TABLET PO SCH ×3 (09:27→17:00)
[2018-10-21] MEDS: DEXTROSE 50% WATER 50ML SYRINGE IV PRN ×2 (12:08→21:07)
[2018-10-21] MEDS ORDERED: DEXT 10% WATER 1,000 ML IV SCH (16:00)
[2018-10-22] VITALS (48 sets, daily range): BP systolic 73–129; BP diastolic 48–77
[2018-10-22] MEDS: IPRATROPIUM BROMIDE (0.02%) 0.5MG/2.5ML NEB HHN SCH ×2 (00:22→04:34)
[2018-10-22] MEDS: SODIUM CHLORIDE 0.45% IV PRN ×3 (02:17→11:34)
[2018-10-22] MEDS: NOREPINEPHRINE IV PRN (02:17)
[2018-10-22] MEDS: PHENYLEPHRINE IV PRN ×2 (02:20→11:34)
[2018-10-22] MEDS: SEVELAMER CARBONATE 800 MG TABLET PO SCH ×2 (06:27→12:00)
[2018-10-22] MEDS: PIPERACILLIN/TAZ 2.25G PREMIX 50 ML IV SCH (06:27)
[2018-10-22] MEDS: GABAPENTIN 100MG CAPSULE PO SCH (06:28)
[2018-10-22] MEDS: BLOOD SUGAR DIAGNOSTIC STRIP TEST SCH ×2 (06:28→11:30)
[2018-10-22] MEDS: INSULIN LISPRO 100 UNITS/ML SUBCUT SCH ×2 (06:28→12:00)
[2018-10-22] MEDS: PANTOPRAZOLE SODIUM 40 MG/VIAL IV SCH (09:24)
[2018-10-22] MEDS: LEVETIRACETAM 500 MG in SODIUM CHLORIDE 0.9% 100 ML IV SCH (09:32)
[2018-10-22] MEDS: MIDODRINE HCL 5MG TABLET PO SCH (09:32)
[2018-10-22] MEDS: FOLIC ACID/VITAMIN B COMP W-C TABLET PO SCH (09:37)
[2018-10-22] MEDS ORDERED: MORPHINE SULFATE 250 MG in DEXT 5% WATER 240 ML IV PRN (11:45)
[2018-10-22] MEDS ORDERED: LORAZEPAM 2MG/ML CPJ IV PRN (11:45)
== END 2018-10-22 14:00 | disposition expired | DRG 720 ==
LOC: ER 13:49 → 7WST 18:56 → EDBEDREQSVC 18:58 → EDBEDREQ 18:58 → ENRESERV 19:15 → 5EST 10-07 11:30 → MICUSO 10-07 14:35
PROVIDERS: ADMIT Internal Medicine; ATTEND Internal Medicine
PROC: 02HV33Z Insertion of Infusion Device into Superior Vena Cava, Percutaneous Approach (ICD-10-PCS; 2018-10-01)
PROC: B5181ZA Fluoroscopy of Superior Vena Cava using Low Osmolar Contrast, Guidance (ICD-10-PCS; 2018-10-01)
PROC: B548ZZA Ultrasonography of Superior Vena Cava, Guidance (ICD-10-PCS; 2018-10-01)
PROC: 5A1D70Z Performance of Urinary Filtration, Intermittent, Less than 6 Hours Per Day (ICD-10-PCS; 2018-10-02)
PROC: 30233N1 Transfusion of Nonautologous Red Blood Cells into Peripheral Vein, Percutaneous Approach (ICD-10-PCS; 2018-10-03)
PROC: 5A1D70Z Performance of Urinary Filtration, Intermittent, Less than 6 Hours Per Day (ICD-10-PCS; principal; 2018-10-04)
PROC: 5A1D70Z Performance of Urinary Filtration, Intermittent, Less than 6 Hours Per Day (ICD-10-PCS; 2018-10-07)
PROC: 5A1D70Z Performance of Urinary Filtration, Intermittent, Less than 6 Hours Per Day (ICD-10-PCS; 2018-10-08)
PROC: 5A1D70Z Performance of Urinary Filtration, Intermittent, Less than 6 Hours Per Day (ICD-10-PCS; 2018-10-10)
PROC: 5A1955Z Respiratory Ventilation, Greater than 96 Consecutive Hours (ICD-10-PCS; 2018-10-13)
PROC: 5A09357 Assistance with Respiratory Ventilation, Less than 24 Consecutive Hours, Continuous Positive Airway Pressure (ICD-10-PCS; 2018-10-13)
PROC: 0BH17EZ Insertion of Endotracheal Airway into Trachea, Via Natural or Artificial Opening (ICD-10-PCS; 2018-10-13)
PROC: 4A00X4Z Measurement of Central Nervous Electrical Activity, External Approach (ICD-10-PCS; 2018-10-14)
PROC: 5A1D70Z Performance of Urinary Filtration, Intermittent, Less than 6 Hours Per Day (ICD-10-PCS; 2018-10-15)
PROC: 5A1D70Z Performance of Urinary Filtration, Intermittent, Less than 6 Hours Per Day (ICD-10-PCS; 2018-10-18)
PROC: 30233R1 Transfusion of Nonautologous Platelets into Peripheral Vein, Percutaneous Approach (ICD-10-PCS; 2018-10-18)
PROC: 5A1D70Z Performance of Urinary Filtration, Intermittent, Less than 6 Hours Per Day (ICD-10-PCS; 2018-10-20)
PROC: 4A00X4Z Measurement of Central Nervous Electrical Activity, External Approach (ICD-10-PCS; 2018-10-21)
DX: A41.9 Sepsis, unspecified organism (principal); J96.01 Acute respiratory failure with hypoxia; I46.9 Cardiac arrest, cause unspecified; R65.21 Severe sepsis with septic shock; E43 Unspecified severe protein-calorie malnutrition; J69.0 Pneumonitis due to inhalation of food and vomit; G92 Toxic encephalopathy; K29.71 Gastritis, unspecified, with bleeding; Z99.11 Dependence on respirator [ventilator] status; G93.1 Anoxic brain damage, not elsewhere classified; E11.22 Type 2 diabetes mellitus with diabetic chronic kidney disease; D68.9 Coagulation defect, unspecified; D69.6 Thrombocytopenia, unspecified; E87.8 Other disorders of electrolyte and fluid balance, not elsewhere classified; I12.0 Hypertensive chronic kidney disease with stage 5 chronic kidney disease or end stage renal disease; C18.9 Malignant neoplasm of colon, unspecified; D63.8 Anemia in other chronic diseases classified elsewhere; N18.6 End stage renal disease; E05.90 Thyrotoxicosis, unspecified without thyrotoxic crisis or storm; Z99.2 Dependence on renal dialysis; E78.00 Pure hypercholesterolemia, unspecified; H10.89 Other conjunctivitis; H40.9 Unspecified glaucoma; D18.1 Lymphangioma, any site; D50.0 Iron deficiency anemia secondary to blood loss (chronic); Z66 Do not resuscitate; T45.515A Adverse effect of anticoagulants, initial encounter; Z93.3 Colostomy status; Z79.82 Long term (current) use of aspirin; E78.5 Hyperlipidemia, unspecified; I25.10 Atherosclerotic heart disease of native coronary artery without angina pectoris; E11.39 Type 2 diabetes mellitus with other diabetic ophthalmic complication; H42 Glaucoma in diseases classified elsewhere; Z79.4 Long term (current) use of insulin; E87.1 Hypo-osmolality and hyponatremia; R62.7 Adult failure to thrive; I71.4 Abdominal aortic aneurysm, without rupture; H54.40 Blindness, one eye, unspecified eye; D64.9 Anemia, unspecified; E87.5 Hyperkalemia; I50.9 Heart failure, unspecified; E11.36 Type 2 diabetes mellitus with diabetic cataract; E87.6 Hypokalemia; I27.20 Pulmonary hypertension, unspecified; I31.3 Pericardial effusion (noninflammatory); I13.2 Hypertensive heart and chronic kidney disease with heart failure and with stage 5 chronic kidney disease, or end stage renal disease; E11.649 Type 2 diabetes mellitus with hypoglycemia without coma; I45.81 Long QT syndrome; Z68.1 Body mass index [BMI] 19.9 or less, adult; M48.56XA Collapsed vertebra, not elsewhere classified, lumbar region, initial encounter for fracture; I70.0 Atherosclerosis of aorta; I48.0 Paroxysmal atrial fibrillation; K52.9 Noninfective gastroenteritis and colitis, unspecified; K80.20 Calculus of gallbladder without cholecystitis without obstruction; X58.XXXA Exposure to other specified factors, initial encounter; Z91.81 History of falling; Z90.49 Acquired absence of other specified parts of digestive tract; Z85.118 Personal history of other malignant neoplasm of bronchus and lung; Z85.038 Personal history of other malignant neoplasm of large intestine; Z79.01 Long term (current) use of anticoagulants; Y93.89 Activity, other specified; Y92.89 Other specified places as the place of occurrence of the external cause; Y99.8 Other external cause status
CPT/HCPCS: 36415; 36569; 36600; 71045; 71260; 74018; 74177; 76937; 77001; 78580; 80048; 80061; 80076; 80202; 82140; 82270; 82375; 82533; 82607; 82746; 82805; 82962; 83036; 83605; 83735; 83880; 83930; 84100; 84145; 84439; 84443; 84478; 84481; 84484; 85014; 85018; 85027; 85044; 86705; 86709; 86803; 86850; 86900; 86920; 87070; 87106; 87340; 93005; 93306; 93970; 94003; 94640; 96360; 96361; 97161; 99285; A6261; C1725; C9113; J0282; J0330; J0885; J1200; J1953; J2060; J2248; J2270; J2274; J2370; J2405; J2543; J2704; J3370; J3475; J3490; J7030; J7040; J7042; J7050; J7060; P9016; P9034; P9047; Q9967